=== PATIENT | male | born 1980 | race Caucasian/White ===

== ENCOUNTER 2022-03-02 21:34 | Emergency (ER) | payer OTHER, SELFPAY ==
[2022-03-02 21:37] VITALS: BP 143/73; PULSE 90; RESP 18; TEMP 36.7; O2SAT 98
--- NOTE | 2022-03-02 21:55 | ED.GENADULT ---
HPI - General Adult General Chief complaint: Extremity Injury, Lower Stated complaint: right lower leg pain Time Seen by Provider: 03/02/22 21:43 History of Present Illness HPI narrative: 41-year male presents emergency room secondary pain to the medial aspect of his right calf. Patient states that he went out to play basketball and he started to run and all of a sudden he felt like someone popped him in the back of his right calf. Began having pain and swelling afterwards. He has been able to just limp on that leg and not bear any weight. Denies any pain to his knee or his ankle. Never anything like this before. Related Data Allergies Allergy/AdvReac Type Severity Reaction Status Date / Time No Known Allergies Allergy Verified 03/02/22 21:41 Review of Systems Review of Systems: CONSTITUTIONAL: Denies fever, chills, or sweats. EYES: Denies visual changes, redness, or discharge. ENT: Denies rhinorrhea, congestion, sore throat, or otalgia. CARDIOVASCULAR: Denies chest pain, palpitations, or edema. RESPIRATORY: Denies cough or dyspnea. GASTROINTESTINAL: Denies abdominal pain, nausea, vomiting, or diarrhea. GENITOURINARY: Denies dysuria or hematuria. SKIN: Denies rash or itching. MUSCULOSKELETAL: Pain to the right calf. No history of any chronic ongoing back or joint issues NEUROLOGIC: Denies headache, numbness, or weakness. PSYCHIATRIC: Denies anxiety or depression. [facility] Past Medical History Medical History (Updated 03/02/22 @ 21:56 by Kevin Kaba DO) No pertinent past medical history Social History Social History (Updated 03/02/22 @ 21:56 by Kevin Kaba DO) Social History: Works with the [employer] Smoking status: Never smoker Exam Narrative: APPEARANCE: Well appearing, no pain or distress, well-nourished. Head normocephalic and atraumatic. EYES: PERRLA/EOMI, conjunctivae very clear. NOSE: Normal with no drainage NECK: Supple. No adenopathy, no masses. RESPIRATORY: Airway patent, respirations nonlabored. Clear to auscultation bilaterally, no rales, rhonchi, wheezing. CARDIOVASCULAR: Regular rate and rhythm without murmurs, rubs, or gallops. ABDOMINAL: Soft, nontender, nondistended, no hepatosplenomegaly Musculoskeletal: Patient noted to have tenderness and swelling to the medial aspect of the right calf. Achilles tendons intact. No swelling or issues with movement of the ankle or knee. NEURO: Alert. Cranial nerves II through XII intact. Normal gait. Good coordination. Nonfocal examination. SKIN:: Warm, dry. Normal Color PSYCHIATRIC: Normal affect/mood, normal interaction Course Vital Signs Vital signs: Vital Signs Temperature 98.1 F 03/02/22 21:37 Pulse Rate 90 03/02/22 21:37 Respiratory Rate 18 03/02/22 21:37 Blood Pressure 143/73 H 03/02/22 21:37 Pulse Oximetry 98 03/02/22 21:37 Oxygen Delivery Room Air 03/02/22 21:37 Temperature 98.1 F 03/02/22 21:37 Pulse Rate 90 03/02/22 21:37 Respiratory Rate 18 03/02/22 21:37 Blood Pressure 143/73 H 03/02/22 21:37 Pulse Oximetry 98 03/02/22 21:37 Oxygen Delivery Room Air 03/02/22 21:37 Medical Decision Making MDM Narrative Medical decision making narrative: Presentation is consistent with a torn muscle to the right calf. It is noted just been to the medial aspect. Patient will be fitted with crutches. Placed on nonsteroidal anti-inflammatory medication. Advised him to keep ice to it for the next day or so. Given a referral to follow-up with the orthopedic surgeon next week. Vital Signs Vital Signs: Vital Signs Temperature 98.1 F 03/02/22 21:37 Pulse Rate 90 03/02/22 21:37 Respiratory Rate 18 03/02/22 21:37 Blood Pressure 143/73 H 03/02/22 21:37 Pulse Oximetry 98 03/02/22 21:37 Oxygen Delivery Room Air 03/02/22 21:37 Temperature 98.1 F 03/02/22 21:37 Pulse Rate 90 03/02/22 21:37 Respiratory Rate 18 03/02/22 21:37 Blood Pressure 143/73 H 03/02/22 21:37 Pulse O
== END 2022-03-02 22:10 | disposition home or self-care (01) ==
LOC: ANHED 21:55
PROVIDERS: Emergency Provider Emergency Medicine; PCP Internal Medicine
DX: S86.911A Strain of unspecified muscle(s) and tendon(s) at lower leg level, right leg, initial encounter (principal); X50.9XXA Other and unspecified overexertion or strenuous movements or postures, initial encounter; Y93.67 Activity, basketball
CPT/HCPCS: 99283